=== PATIENT | female | born 1985 | race Caucasian/White ===

== ENCOUNTER 2016-07-03 11:31 | Emergency (ER) | payer OTHER ==
[~2016-07-03] VITALS: Ht 162.6 cm; Wt 55.8 kg
[2016-07-03 11:36] VITALS: BP 102/69
[2016-07-03 12:19] LABS: BASOPHIL % 0.9 % (0-2); PLATELET COUNT 186 x10^3mcL (130-400); RED CELL DISTRIBUTION WIDTH 12.6 % (11.5-14.5)
[2016-07-03 12:29] LABS: CALCIUM 8.3 mg/dL (8.5-10.1); CARBON DIOXIDE 26.6 mmol/L (21-32); CHLORIDE SERUM 107 mmol/L (98-107); CREATININE SERUM 0.6 mg/dL (0.6-1.0); GFR1 > 60 mL/min; GLUCOSE SERUM 86 mg/dL (74-106); POTASSIUM SERUM 3.9 mmol/L (3.5-5.1); SODIUM SERUM 140 mmol/L (136-145)
[2016-07-03 12:39] LABS: ALBUMIN 3.7 g/dL (3.4-5.0); ALKALINE PHOSPHATASE 49 U/L (46-116); ALT/SGPT 14 U/L (14-59); AST/SGOT 17 U/L (15-37); BILIRUBIN TOTAL 0.28 mg/dL (0.20-1.00); MAGNESIUM 1.9 mg/dL (1.8-2.4); TOTAL PROTEIN, SERUM 7.5 g/dL (6.4-8.2)
== END 2016-07-03 13:47 | disposition home or self-care (01) ==
LOC: ED 11:31
PROVIDERS: Specialist
DX: M79.605 Pain in left leg (principal); M79.602 Pain in left arm; R07.9 Chest pain, unspecified; J45.909 Unspecified asthma, uncomplicated
CPT/HCPCS: J1885

== ENCOUNTER 2018-09-25 22:28 | Emergency (ER) | payer MEDICAID ==
[~2018-09-25] VITALS: Ht 162.6 cm; Wt 60.3 kg
[2018-09-25 22:32] VITALS: Ht 162.6 cm; Wt 60.3 kg
[2018-09-26 00:15] VITALS: BP 106/74
== END 2018-09-26 00:15 | disposition home or self-care (01) ==
LOC: ED 22:28
DX: S16.1XXA Strain of muscle, fascia and tendon at neck level, initial encounter (principal); S29.012A Strain of muscle and tendon of back wall of thorax, initial encounter; S39.012A Strain of muscle, fascia and tendon of lower back, initial encounter; F41.9 Anxiety disorder, unspecified; J45.909 Unspecified asthma, uncomplicated; Z88.0 Allergy status to penicillin; W22.8XXA Striking against or struck by other objects, initial encounter; Y93.89 Activity, other specified; Y92.89 Other specified places as the place of occurrence of the external cause; Y99.8 Other external cause status
CPT/HCPCS: J1885

== ENCOUNTER 2019-11-07 20:05 | Emergency (ER) | payer MEDICAID ==
[~2019-11-07] VITALS: Ht 162.6 cm; Wt 61.2 kg
[2019-11-07 20:24] VITALS: BP 97/65; Ht 162.6 cm; Wt 61.2 kg
== END 2019-11-07 22:19 | disposition home or self-care (01) ==
LOC: ED 20:05
DX: S16.1XXA Strain of muscle, fascia and tendon at neck level, initial encounter (principal); J45.909 Unspecified asthma, uncomplicated; Z88.0 Allergy status to penicillin; W50.0XXA Accidental hit or strike by another person, initial encounter; Y93.64 Activity, baseball; Y92.320 Baseball field as the place of occurrence of the external cause; Y99.8 Other external cause status
CPT/HCPCS: J1885; Q0162